=== PATIENT | female | born 1985 | race Caucasian/White ===

== ENCOUNTER 2016-11-10 08:50 | Day surgery (SDC) | payer OTHER ==
[~2016-11-10] VITALS: Ht 160 cm; Wt 61.8 kg
[~2016-11-10 08:50] MED LIST: BUPIVACAINE HCL/PF 0.5% 30 ML VIAL ONE; GUM MASTIC/STORAX/MSAL/ALCOHOL LIQUID 0.67 ML VIAL TP ONE; LIDOCAINE HCL 2%/EPI 1:200,000/PF 10 ML VIAL ONE
[2016-11-10] MEDS ORDERED: RINGERS SOLUTION,LACTATED 1,000 ML IV ONE ×2 (09:17→11:30)
[2016-11-10] MEDS ORDERED: CeFAZolin 2 GM/DEXTROSE 50 ML IV ONE ×2 (09:18→11:30)
[2016-11-10 09:41] LABS: BASOPHILS % (AUTO) 0.6 % (0.0-2.0); EOSINOPHILS % (AUTO) 1.9 % (1.0-6.0); HEMATOCRIT 40.2 % (36-46); HEMOGLOBIN 13.3 g/dL (12.0-16.0); LYMPHOCYTES # (AUTO) 1.6 K/uL (1.0-4.8); LYMPHOCYTES % (AUTO) 33.8 % (22.0-44.0); MEAN CORPUSCULAR HEMOGLOBIN 27.6 pg (26.0-34.0); MEAN CORPUSCULAR VOLUME 84 fL (80-100); MONOCYTES # (AUTO) 0.3 K/uL (0.1-1.0); MONOCYTES % (AUTO) 6.4 % (2.0-9.0); NEUTROPHILS # (AUTO) 2.7 K/uL (1.8-7.7); NEUTROPHILS % (AUTO) 57.3 % (40.0-70.0); PLATELET COUNT (AUTO) 302 K/uL (150-450); RED BLOOD CELL COUNT(AUTO) 4.81 MIL/uL (4.00-5.20); RED CELL DISTRIBUTION WIDTH 13.8 % (11.5-14.5); WHITE BLOOD COUNT (AUTO) 4.7 K/uL (4.5-11.0)
[2016-11-10] MEDS ORDERED: ACETAMINOPHEN 1000 MG/ISO-OSM 100 ML IV ONE (11:31)
[2016-11-10] MEDS ORDERED: PROPOFOL 1% 20 ML VIAL IVP ONE (12:00)
[2016-11-10] MEDS ORDERED: HYDROmorphone 2 MG/ML SYRINGE IVP PRN (12:00)
[2016-11-10] MEDS ORDERED: MEPERIDINE-PF 25 MG/ML SYRINGE IVP PRN (12:00)
[2016-11-10] MEDS ORDERED: LIDOCAINE HCL/PF 2% 5 ML VIAL INJ ONE (12:00)
[2016-11-10] MEDS ORDERED: SUCCINYLCHOLINE CHLORIDE 20 MG/ML 10 ML VIAL IVP ONE (12:00)
[2016-11-10] MEDS ORDERED: DEXAMETHASONE SOD PHOS 4 MG/ML VIAL IVP ONE (12:00)
[2016-11-10] MEDS ORDERED: EPHEDrine SULFATE 50 MG/ML VIAL IM ONE (12:00)
[2016-11-10] MEDS ORDERED: ROCURONIUM BROMIDE 10 MG/ML 5 ML VIAL IVP ONE (12:00)
[2016-11-10] MEDS ORDERED: FentaNYL CITRATE-PF 250 MCG/5 ML VIAL IVP ONE (12:00)
[2016-11-10] MEDS ORDERED: KETOROLAC TROMETHAMINE 60 MG/2 ML VIAL IM ONE (12:00)
[2016-11-10] MEDS ORDERED: ONDANSETRON HCL 4 MG/2 ML VIAL IVP ONE (12:00)
[2016-11-10] MEDS ORDERED: FentaNYL CITRATE-PF 100 MCG/2 ML VIAL IVP PRN (12:00)
[2016-11-10] MEDS ORDERED: MIDAZOLAM HCL 2 MG/2 ML VIAL IVP ONE (12:00)
[2016-11-10] MEDS ORDERED: OXYGEN THERAPY IH SCH (12:00)
[2016-11-10] MEDS ORDERED: 0.9% SODIUM CHLORIDE 10 ML VIAL IVP ONE (12:00)
[2016-11-10] MEDS ORDERED: HYDROCODONE/ACETAMINOPHEN 5-325 MG TABLET PO PRN (12:30)
[2016-11-10] MEDS ORDERED: IBUPROFEN 800 MG TABLET PO PRN (12:30)
[2016-11-10] MEDS ORDERED: ACETAMINOPHEN 500 MG TABLET PO PRN (12:30)
== END 2016-11-10 15:20 | disposition home or self-care (01) ==
LOC: SURGERY 08:50
PROVIDERS: ATTEND Surgery
DX: K42.0 Umbilical hernia with obstruction, without gangrene (principal); Z98.890 Other specified postprocedural states
CPT/HCPCS: 36415; 49587; 84703; 85025; J0131; J0330; J0690; J1100; J1885; J2250; J2405; J2704; J3010; J3490 ×5; J7120